=== PATIENT | male | born 1965 | race African-American/Black ===

== ENCOUNTER 2017-06-19 12:01 | Emergency (ER) | payer SELFPAY ==
[2017-06-19 12:06] VITALS: TEMP 98.5; BMI 24.5
--- NOTE | 2017-06-19 12:52 | PDOC ---
History of Present Illness - General Chief Complaint: Hemorrhoids Stated Complaint: SWELLING Time Seen by Provider: 06/19/17 12:52 - History of Present Illness Initial Comments: 51 Male with PMH of hemorrhoids presenting with a suspected hemorrhoid that has not improved with topical steroid cream, suppository, or warm soaks over the past 5 days. Denies any bleeding, fevers, chills, nausea, vomiting, diarrhea , constipation, or other symptoms. He has had a hemorrhoid that required drainage in the past and feels this one also requires drainage. He wa a patient of Dr. Mcnally but recently lost his insurance and would like to follow back up with him as soon as his insurance is re-approved. 06/19/17 13:11 Past History - Past Medical History Allergies/Adverse Reactions: Allergies Allergy/AdvReac Type Severity Reaction Status Date / Time No Known Allergies Allergy Verified 06/19/17 12:02 Home Medications: Ambulatory Orders NK [No Known Home Medication] 06/19/17 COPD: No Other medical history: hemorrhoids - Suicide/Smoking/Psychosocial Hx Smoking History: Never smoked Have you smoked in the past 12 months: No Information on smoking cessation initiated: No Hx Alcohol Use: No Drug/Substance Use Hx: No Substance Use Type: None Review of Systems - Review of Systems Constitutional: No: See HPI, Chills, Diaphoresis, Fever HEENTM: No: Eye Pain, Blurred Vision Respiratory: No: Cough, Shortness of Breath, Wheezing Cardiac (ROS): No: Chest Pain, Edema, Irregular Heart Rate ABD/GI: No: Abd. Pain w/ defecation, Constipated, Diarrhea, Nausea, Rectal Bleeding, Vomiting : No: Burning, Dysuria, Discharge Musculoskeletal: No: Back Pain, Joint Pain Integumentary: No: Bruising, Change in Color, Erythema, Flushing, Lesions Neurological: No: Headache, Numbness, Paresthesia Psychiatric: No: Anxiety, Depression *Physical Exam - Vital Signs Last Vital Signs Temp Pulse Resp BP Pulse Ox 98.5 F 73 18 146/111 100 06/19/17 12:03 06/19/17 12:03 06/19/17 12:03 06/19/17 12:03 06/19/17 12:03 - Physical Exam General Appearance: Yes: Nourished, Appropriately Dressed. No: Apparent Distress HEENT: positive: EOMI, RACHNA, Normal ENT Inspection, Normal Voice Neck: positive: Trachea midline, Normal Thyroid, Supple. negative: Tender, Rigid Respiratory/Chest: positive: Lungs Clear, Normal Breath Sounds. negative: Chest Tender, Respiratory Distress, Accessory Muscle Use Cardiovascular: positive: Regular Rhythm, Regular Rate Gastrointestinal/Abdominal: positive: Normal Bowel Sounds, Flat, Soft. negative : Tender Male Genitalia: positive: normal genitalia Rectal Exam: positive: NL Prostate, normal rectal tone, hemorrhoids (Large hemorroid at the 19:00 position that fluctant and appears reducible but very tender and painful. Approxiaely 2-3 cm in length and 1.5 cm wide.). negative: normal exam Musculoskeletal: positive: Normal Inspection. negative: CVA Tenderness Extremity: positive: Normal Capillary Refill, Normal Inspection, Normal Range of Motion. negative: Tender Integumentary: positive: Normal Color, Dry, Warm Neurologic: positive: integrated marketing manager II-XII NML intact, Fully Oriented, Alert, Normal Mood/ Affect, Normal Response, Motor Strength 5/5 Medical Decision Making - Medical Decision Making 51 year old healthy male with a large non-thrombosed hemorrhoid that is extremely painful to palpation and recalcitrant to topical steroid creams and suppository. Dr. Lewis and the surgical CARD GAME OPERATOR evaluated the patient and decided he was not a candidate for I&D and deferred to follow up with him as an outpatient with recommendations for medical management (Sitz baths). Patient is not quite content with this disposition but understands. 06/19/17 16:36 *DC/Admit/Observation/Transfer Diagnosis at time of Disposition: Hemorrhoid Qualifiers: Hemorrhoid type: second degree Qualified Code(s): K64.1 - Second degree hemorrhoids - Discharge Dispostion Disposition: HOME Condition at time of disposition: Stable Admit: No - Referrals Referrals: Alex Peralta MD [Primary Care Provider] - Darron Lewis MD [Staff Physician] - - Patient Instructions Printed Discharge Instructions: DI for Hemorrhoids Additional Instructions: Please use Sitz baths and topical cream as recommended by Dr. Lewis and please call his office to schedule a follow up within the next week. Please use Tylenol / Ibuprofen for the pain. Please return to the ED for any new or worsening symptoms. - Post Discharge Activity
--- NOTE | 2017-06-19 13:09 | PDOC ---
History of Present Illness - General Chief Complaint: Hemorrhoids Stated Complaint: SWELLING History Source: Patient Exam Limitations: No Limitations Past History - Past Medical History Allergies/Adverse Reactions: Allergies Allergy/AdvReac Type Severity Reaction Status Date / Time No Known Allergies Allergy Verified 06/19/17 12:02 COPD: No Other medical history: hemorrhoids - Suicide/Smoking/Psychosocial Hx Smoking History: Never smoked Have you smoked in the past 12 months: No Information on smoking cessation initiated: No Hx Alcohol Use: No Drug/Substance Use Hx: No Substance Use Type: None *Physical Exam - Vital Signs Last Vital Signs Temp Pulse Resp BP Pulse Ox 98.5 F 73 18 146/111 100 06/19/17 12:03 06/19/17 12:03 06/19/17 12:03 06/19/17 12:03 06/19/17 12:03
[2017-06-19] MEDS ORDERED: ACETAMINOPHEN 500 MG TABLET (FP) PO ONE (14:43)
[2017-06-19] MEDS ORDERED: ACETAMINOPHEN 325 MG TABLET (FP) ONE (14:45)
--- NOTE | 2017-06-19 16:46 | CONSULT ---
- Consultation REQUESTING PROVIDER: Jerrica CONSULT REQUEST: We have been asked to surgically evaluate this patient for ( specify). PCP: unknown HISTORY OF PRESENT ILLNESS:CTSP for evaluation and management of rectal pain of 4 days duration; h/ thrombosed external hemorrhoid in the past; NOC; no bleeding ; denies constipation and/or straining PMHx: none PSHx: none Home Medications Medication Instructions Recorded NK [No Known Home Medication] 06/19/17 Allergies Allergy/AdvReac Type Severity Reaction Status Date / Time No Known Allergies Allergy Verified 06/19/17 12:02 PHYSICAL EXAM: GENERAL: Awake, alert, and fully oriented, in no acute distress. ABDOMEN: Soft, nontender, not distended, normoactive bowel sounds, no guarding, no rebound, no masses. No organomegaly. MUSCULOSKELETAL: Normal ROM at all joints. No bony deformities or tenderness. No CVA tenderness. UPPER EXTREMITIES: 2+ pulses, warm, well-perfused. No cyanosis. Cap refill <2 seconds. No peripheral edema. LOWER EXTREMITIES: 2+ pulses, warm, well-perfused. No calf tenderness. No peripheral edema. NEUROLOGICAL: Normal speech, gait not observed. PSYCH: Cooperative. Good eye contact. Appropriate mood and affect. SKIN: Warm, dry, normal turgor, no rashes or lesions noted. RECTAL: GST; no mass; edematous non thrombosed external hemorrhoid vs. prolapsed internal hemorrhoid; no blood; no fissure; no fistula Vital Signs Temperature 98.5 F 06/19/17 12:03 Pulse Rate 73 06/19/17 12:03 Respiratory Rate 18 06/19/17 12:03 Blood Pressure 146/111 06/19/17 12:03 O2 Sat by Pulse Oximetry (%) 100 06/19/17 12:03 IMP: nonthrombosed external hermorrhoid vs. prolapsed internal hemorrhoid SMOOTH: Suggest BID sitz baths w/Epsom salts; Witch yolie apllications and/or chilled Mylanta compresses to the are; bedrest and leg elevation; stool softeners and Colace and fiber supplements; d/w patient that this should resolve w/ conservative tx.; he should f/u in my office for further care and evaluation; a/a/u by the patient; OTC analgesics were discussed as well. Darron Lewis MD FACS Visit type - Case Type Case Type: ED Admission - Emergency Emergency Visit: Yes Care time: The patient presented to the Emergency Department on the above date and was hospitalized for further evaluation of their emergent condition. - New patient This patient is new to me today: Yes Date on this admission: 06/19/17 - Critical Care Critical Care patient: No
[2017-06-19 16:55] VITALS: BP 138/92; PULSE 62
== END 2017-06-19 16:55 | disposition home or self-care (01) ==
LOC: JER 12:01
DX: K64.1 Second degree hemorrhoids (principal)
CPT/HCPCS: 99282-25